=== PATIENT | female | born 2000 | race Caucasian/White ===

== ENCOUNTER 2023-01-01 23:27 | Emergency (ER) | payer MEDICAID ==
[~2023-01-01] VITALS: Ht 165.1 cm; Wt 49.7 kg
[2023-01-02 00:12] VITALS: BP 113/83
--- NOTE | 2023-01-02 00:33 | NUR ---
PATIENT BIB FRIEND FOR MULTIPLE LACERATIONS ON RIGHT HAND
--- NOTE | 2023-01-02 00:34 | NUR ---
AUDIO VISUAL PRODUCTION SPECIALIST AT BEDSIDE APPLIED STERISTRIP TO AFFECTED LOCATION
--- NOTE | 2023-01-02 00:44 | NUR ---
Patient discharged to home in stable condition. Written and verbal after care instructions given. Patient verbalizes understanding of instruction.
== END 2023-01-02 00:46 | disposition home or self-care (01) ==
LOC: ER 23:29
DX: S61.210A Laceration without foreign body of right index finger without damage to nail, initial encounter (principal); Z90.89 Acquired absence of other organs; W26.8XXA Contact with other sharp object(s), not elsewhere classified, initial encounter; Y93.89 Activity, other specified; Y92.89 Other specified places as the place of occurrence of the external cause; Y99.8 Other external cause status